=== PATIENT | female | born 1935 | race Caucasian/White ===

== ENCOUNTER 2016-10-04 02:51 | Observation (INO) | payer MEDICAID, MEDICARE ==
[2016-10-04 03:17] LABS: Hematocrit 45 % (35-47); Hemoglobin 14.6 g/dl (12.0-16.0); Mean Corpuscular HGB Conc 32 g/dl (31-36); Mean Corpuscular Hemoglobin 30 pg (27-31); Mean Corpuscular Volume 91 fL (80-97); Mean Platelet Volume 9 um3 (7.4-10.4); Red Blood Count 4.92 10^6/ul (4.0-5.4); Red Cell Distribution Width 15 % (10.5-15); White Blood Count 11.9 10^3/ul (3.5-10.8)
[2016-10-04 03:32] LABS: Albumin 3.6 g/dL (3.2-5.2); BUN/Creatinine Ratio 24.4 (8-20); Calcium 8.7 mg/dL (8.6-10.3); EGFR African American 77.7 (>60); EGFR Non-African American 60.4 (>60); Globulin 4.1 g/dL (2-4); Total Bilirubin 0.3 mg/dL (0.2-1.0); Total Protein 7.7 g/dL (6.4-8.9)
[2016-10-04 03:36] LABS: Troponin I 0.01 ng/mL (<0.04)
[2016-10-04] MEDS ORDERED: Albuterol 2.5 MG/3 ML NEB.SOL* (0.083%) INH PRN (07:52)
--- NOTE | 2016-10-04 08:01 | RAD ---
HISTORY: Chest pain COMPARISONS: March 17, 2011 VIEWS:1: Single frontal portable view of the chest at 3:15 AM FINDINGS: LINES AND TUBES: A left-sided ICD pacemaker is noted CARDIOMEDIASTINAL SILHOUETTE: The cardiomediastinal silhouette is normal for portable technique. PLEURA: The costophrenic angles are sharp. No pleural abnormalities are noted. LUNG PARENCHYMA: The lungs are clear. ABDOMEN: The upper abdomen is clear. There is no subphrenic gas. BONES AND SOFT TISSUES: No bone or soft tissue abnormalities are noted. IMPRESSION: NO ACTIVE CARDIOPULMONARY DISEASE.
[2016-10-04] MEDS: Lisinopril TAB* 10 MG PO SCH ×2 (11:29→21:45)
[2016-10-04] MEDS: Enoxaparin(*) 40 MG/0.4 ML SYR SUBCUT SCH (11:29)
[2016-10-04] MEDS: Metoprolol Succinate XL TAB* 50 MG PO SCH ×2 (11:30→21:46)
[2016-10-04] MEDS: Furosemide TAB* 20 MG PO SCH (11:31)
--- NOTE | 2016-10-04 13:22 | HP ---
CC: Dr. Henriquez; Dr. Manning HISTORY AND PHYSICAL: DATE OF ADMISSION: 10/04/16 PRIMARY CARE PHYSICIAN: Dr. Henriquez CHIEF COMPLAINT: Left arm discomfort. HISTORY OF PRESENT ILLNESS: Ms. Pelayo is a 81-year-old female with a past medical history of hypertension, nonischemic cardiomyopathy, and likely underlying COPD, who presents to the hospital with left arm discomfort. The patient states her symptoms were present for the past 2 to 3 weeks, where she reports a slight ache in the left arm from the shoulder to the elbow that feels like a "toothache." The patient states this has been mostly present at night. She does not really notice it during the day. She feels like over the past few nights, it seems to have possibly worsened and then last night when she went to bed, it was bothersome enough to the point where she could not get to sleep. She continued to toss and turn in bed and could not get comfortable and the arm pain persisted. She denies any chest pain, has chronic shortness of breath, she states, but no change in this recently. No trauma to the arm. She has no associated nausea, vomiting, diaphoresis, or abdominal pain. She states that this is exactly how her symptoms presented 6 years ago when she was diagnosed with what sounds like a nonischemic cardiomyopathy. She states she was referred to Dr. Manning at the time and had a catheterization that was cleaned; however, she had an ICD placed at that time and it sounds like she was diagnosed with a nonischemic cardiomyopathy. Echo at that time showed a severe LV dysfunction with an EF of 20% to 25%. Since then, her last recent echo from March had showed normalization of her EF, which was 55% to 60% in March 2016. The patient was concerned about this and decided to take her blood pressure at home. She states it was elevated at 177/105. She took 81 mg of aspirin x2 and she took an extra dose of her lisinopril, but she felt that this did not help her blood pressure and she began to worry and called 911. En route to the hospital, she got an additional 162 mg of aspirin and a nitro, and she states that prior to arriving to the hospital, her pain resolved. The patient also notes that she has had some left knee pain recently with some swelling in the left lower extremity that began after she hurt her knee while cleaning her commode. PAST MEDICAL HISTORY: 1. Hypertension. 2. Nonischemic cardiomyopathy, status post ICD. PAST SURGICAL HISTORY: 1. ICD placement. 2. Laparotomy with colostomy and reversal for bowel obstruction. 3. Tubal ligation. HOME MEDICATIONS: 1. Aspirin 81 mg by mouth daily. 2. Toprol-XL 50 mg by mouth 3 times daily. 3. Lasix 10 mg by mouth every other day. 4. Lisinopril 30 mg by mouth 3 times daily. 5. Albuterol one puff inhaled every 4 hours as needed for shortness of breath or wheezing. ALLERGIES: The patient reports adverse reaction to COREG, allergy to NICKEL. FAMILY HISTORY: Significant for her father with bone cancer and a bother with cancer. SOCIAL HISTORY: The patient quit smoking 8 years ago after a [id number] history. Denies any alcohol or illicit drug use. REVIEW OF SYSTEMS: A 12-point review of systems is negative except for that as noted in the HPI. PHYSICAL EXAMINATION GENERAL: The patient is a pleasant elderly female, lying in bed in no apparent distress. VITAL SIGNS: On admission: Temperature 97.6, heart rate of 71, respiratory rate of 18, O2 saturation 95% on room air on 2 L, blood pressure 144/64. HEENT: Head normocephalic and atraumatic. Eyes: Pupils are equal, round, and reactive to light and accommodation. Anicteric sclerae. ENT: Moist mucous membranes. No cervical adenopathy. Clear posterior oropharynx. LUNGS: Clear to auscultation bilaterally. No rales or rhonchi. Some mild end - expiratory wheezes noted throughout. CARDIOVASCULAR: Regular rate and rhythm. S1 and S2 present. No murmurs, gallops, or rubs. ABDOMEN: Soft, nontender, and nondistended. Bowel sounds positive. EXTREMITIES: May be some slight asymmetry with the left larger than the right. No pitting edema. NEUROLOGIC: The patient is alert and oriented x3. No focal neurological deficits. SKIN: Warm, dry, and well perfused. LABORATORY DATA: White blood cell count of 11.9, hemoglobin of 14, hematocrit of 45, and platelets of 208. Sodium of 138, potassium 4.0, chloride of 106, carbon dioxide of 28, BUN of 22, creatinine of 0.9, glucose of 103, lactic acid of 1.0, troponin negative x2. EKG personally reviewed shows paced rhythm. Chest x-ray personally reviewed shows no acute disease. ASSESSMENT AND PLAN: Left arm pain, which represents similar symptoms to the patient's previous diagnosis of cardiomyopathy in a 81-year-old female with past medical history of hypertension, likely underlying chronic obstructive pulmonary disease and nonischemic cardiomyopathy. 1. Left arm pain. Pain seems to have resolved right now, possibly due to nitro. The patient did have significant hypertension, which may have been driving her symptoms. She has had 2 negative troponins. EKG shows a paced rhythm. We will continue to monitor the patient on telemetry for now. Check an additional troponin. I have ordered an echocardiogram to be done to evaluate if there has been any change in her heart in the last 6 months. 2. Hypertension. The patient's BP is fairly well controlled now. Continue home medications. We will give her Lasix daily instead of every other day as it was at home. 3. Mild left lower extremity swelling, probably just due to OA and recent trauma from cleaning. We will check a D-dimer. If this is elevated, can proceed with a Doppler. 4. Likely underlying chronic obstructive pulmonary disease. It sounds like the patient has not been formally diagnosed, but she was prescribed albuterol recently. We will continue albuterol in the hospital. 5. DVT prophylaxis. Lovenox subcu. 6. Code status. The patient is a full code. TIME SPENT: Total time spent on this admission was 40 minutes, with over half the time spent [id number] with the patient in counseling and coordinating care. [id number]/[facility] #: [id number] DAVID
--- NOTE | 2016-10-04 20:37 | ED ---
Roselia Lopez Alok, scribed for Isidro Glasgow MD on 10/04/16 at 0409 . Palpitations / Dysrhythmia - HPI Summary HPI Summary: 81F presents to the ED BIBA for EKG abnormality. Pt reportedly woke up this morning feeling left arm pain before seeing her doctor where she was sent here for possible STEMI following EKG. Pt took 162 mg aspirin prior to EMS arrival and was given another 162 mg by EMS as well as 1 tab nitro and 4L O2. Pt notes SOB on exertion same as baseline. Pt also notes left lower extremity edema for the past 2 weeks. Pt currently denies pain and states that left arm pain has subsided since NTG. Pt denies N/V or diaphoresis. Pt denies CP or tightness. PMHx includes HTN and pacemaker. Pt is a former smoker 8 years ago and denies ETOH. Pt ambulates with a cane. PCP Dr. Henriquez. - History of Current Complaint Chief Complaint: EDChestPainROMI Time Seen by Provider: 10/04/16 03:02 Hx Obtained From: Patient Onset/Duration: Resolved Timing: Constant Severity Initially: Moderate Severity Currently: Mild Aggravating: Exertion - SOB Alleviating: Medication - NTG - Allergy/Home Medications Allergies/Adverse Reactions: Allergies Allergy/AdvReac Type Severity Reaction Status Date / Time Nickel Allergy Rash And Verified 10/04/16 03:02 Itching Home Medications: Home Medications Aspirin [Aspirin Adult Low Dose 81 MG] 81 mg PO DAILY 10/04/16 [History Confirmed 10/04/16] Furosemide TAB* [Lasix TAB*] 10 mg PO DAILY 10/04/16 [History Confirmed 10/04/16 ] Lisinopril [Lisinopril 30 MG-] 30 mg PO BID 10/04/16 [History Confirmed 10/04/16 ] Metoprolol Succinate [Toprol Xl] 50 mg PO BID 10/04/16 [History Confirmed ] PMH/Surg Hx/FS Hx/Imm Hx Cardiovascular History: Reports: Hx Hypertension, Hx Pacemaker/ICD - Surgical History Surgery Procedure, Year, and Place: Colon surgery 2011. Colostomy reversal Infectious Disease History: No Infectious Disease History: Denies: History Other Infectious Disease, Traveled Outside the [place] in Last 30 Days - Family History Known Family History: Negative: Cardiac Disease, Hypertension, Diabetes - Social History Occupation: Retired Alcohol Use: None Hx Substance Use: No Substance Use Type: Reports: None Hx Tobacco Use: Yes Smoking Status (MU): Former Smoker Amount Used/How Often: 60 year hx Have You Smoked in the Last Year: No Review of Systems Negative: Fever, Chills Negative: Erythema Negative: Sore Throat Negative: Chest Pain Positive: Shortness Of Breath. Negative: Cough Negative: Abdominal Pain, Vomiting, Nausea Negative: dysuria, hematuria Positive: Edema, Other - left arm pain. Negative: Myalgia Negative: Rash Neurological: Other - Negative: Dizziness All Other Systems Reviewed And Are Negative: Yes Physical Exam - Summary Physical Exam Summary: Constitutional: Well-developed, Well-nourished, Alert. (-) Distressed Skin: Warm, Dry HENT: Normocephalic; Atraumatic Eyes: Conjunctiva normal Neck: Musculoskeletal ROM normal neck. (-) JVD, (-) Stridor, (-) Tracheal deviation Cardio: Rhythm regular, rate normal, Heart sounds normal; Intact distal pulses; The pedal pulses are 2+ and symmetric. Radial pulses are 2+ and symmetric. (-) Murmur Pulmonary/Chest wall: Effort normal. (-) Respiratory distress, (-) Wheezes, (-) Rales Abd: Soft, (-) Tenderness, (-) Distension, (-) Guarding, (-) Rebound Musculoskeletal: Lower left extremity Edema Lymph: (-) Cervical adenopathy Neuro: Alert, Oriented x3 Psych: Mood and affect Normal Triage Information Reviewed: Yes Vital Signs On Initial Exam: Initial Vitals Temp Pulse Resp BP Pulse Ox 97.6 F 71 18 144/64 97 10/04/16 03:06 10/04/16 03:06 10/04/16 03:06 10/04/16 03:06 10/04/16 03:06 Vital Signs Reviewed: Yes Diagnostics - Vital Signs Vital Signs Temp Pulse Resp BP Pulse Ox 10/04/16 03:06 97.6 F 71 18 144/64 97 - Laboratory Lab Results: Lab Results 10/04/16 10/04/16 10/04/16 Range/Units 02:55 02:55 02:55 WBC 11.9 H (3.5-10.8) 10^3/ul RBC 4.92 (4.0-5.4) 10^6/ul Hgb 14.6 (12.0-16.0) g/dl Hct 45 (35-47) % MCV 91 (80-97) fL MCH 30 (27-31) pg MCHC 32 (31-36) g/dl RDW 15 (10.5-15) % Plt Count 208 (150-450) 10^3/ul MPV 9 (7.4-10.4) um3 Neut % (Auto) 55.9 (38-83) % Lymph % (Auto) 26.5 (25-47) % [place] % (Auto) 12.5 H (1-9) % Eos % (Auto) 4.5 (0-6) % Baso % (Auto) 0.6 (0-2) % Absolute Neuts (auto) 6.7 (1.5-7.7) 10^3/ul Absolute Lymphs (auto) 3.2 (1.0-4.8) 10^3/ul Absolute Monos (auto) 1.5 H (0-0.8) 10^3/ul Absolute Eos (auto) 0.5 (0-0.6) 10^3/ul Absolute Basos (auto) 0.1 (0-0.2) 10^3/ul Absolute Nucleated RBC 0.02 10^3/ul Nucleated RBC % 0.1 Sodium 138 (133-145) mmol/L Potassium 4.0 (3.5-5.0) mmol/L Chloride 106 (101-111) mmol/L Carbon Dioxide 28 (22-32) mmol/L Anion Gap 4 (2-11) mmol/L BUN 22 (6-24) mg/dL Creatinine 0.90 (0.51-0.95) mg/dL Est GFR ( Amer) 77.7 (>60) Est GFR (Non-Af Amer) 60.4 (>60) BUN/Creatinine Ratio 24.4 H (8-20) Glucose 103 H (70-100) mg/dL Lactic Acid 1.0 (0.5-2.0) mmol/L Calcium 8.7 (8.6-10.3) mg/dL Total Bilirubin 0.30 (0.2-1.0) mg/dL AST 15 (13-39) U/L ALT 13 (7-52) U/L Alkaline Phosphatase 87 (34-104) U/L Troponin I 0.01 (<0.04) ng/mL Total Protein 7.7 (6.4-8.9) g/dL Albumin 3.6 (3.2-5.2) g/dL Globulin 4.1 H (2-4) g/dL Albumin/Globulin Ratio 0.9 L (1-3) Result Diagrams: 10/04/16 02:55 10/04/16 02:55 Lab Statement: Any lab studies that have been ordered have been reviewed, and results considered in the medical decision making process. - Radiology CXR Xray Interpretation: No Acute Changes Radiology Interpretation Completed By: ED Physician - Dr. Glasgow - EKG 0251 Cardiac Rate: Other Rate - 70 bpm EKG Interpretation: No STEMI Course/Dx - Diagnoses Provider Diagnoses: Left arm pain - Physician Notifications Discussed Care Of Patient With: Dr. Dixon (Hospitalist) @ [id number] - Will admit pt Discharge - Discharge Plan Condition: Stable Disposition: ADMITTED TO [facility] The documentation as recorded by the Roselia moragn Alok accurately reflects the service I personally performed and the decisions made by Pee guillermo Jerry, MD.
--- NOTE | 2016-10-05 08:27 | PN ---
Subjective Date of Service: 10/05/16 Interval History: Patient seen this morning. No complaints. No recurrence of arm discomfort, no chest pain, SOB. Slept well. Family History: Unchanged from Admission Social History: Unchanged from Admission Past Medical History: Unchanged from Admission Objective Active Medications: Albuterol (Ventolin 2.5 Mg/3 Ml Neb.Sirena*) 2.5 mg INH [id number] AWAKE PRN Aspirin (Aspirin Ec Low Dose*) 81 mg PO DAILY MARTHA Enoxaparin Sodium (Lovenox(*)) 40 mg SUBCUT Q24H MARTHA Furosemide (Lasix Tab*) 10 mg PO DAILY MARTHA Lisinopril (Prinivil Tab*) 30 mg PO BID MARTHA Metoprolol Succinate (Toprol Xl Tab*) 50 mg PO BID [facility] Vital Signs 10/04/16 10/04/16 10/04/16 08:31 08:42 09:00 Temperature Pulse Rate 68 71 Respiratory 21 Rate Blood Pressure 146/62 144/63 (mmHg) O2 Sat by Pulse 95 92 Oximetry 10/04/16 10/04/16 10/04/16 09:14 09:51 10:53 Temperature 98.5 F 97.6 F 97.6 F Pulse Rate 70 70 70 Respiratory 21 18 18 Rate Blood Pressure 144/63 147/64 147/64 (mmHg) O2 Sat by Pulse 94 94 Oximetry 10/04/16 10/04/16 10/04/16 12:16 15:42 20:04 Temperature 97.6 F 98.1 F 98.3 F Pulse Rate 70 69 69 Respiratory 16 18 18 Rate Blood Pressure 148/79 133/63 135/61 (mmHg) O2 Sat by Pulse 94 92 93 Oximetry 10/04/16 10/05/16 10/05/16 23:29 03:24 03:31 Temperature 98.0 F 98.0 F Pulse Rate 70 72 Respiratory 16 20 Rate Blood Pressure 146/64 163/74 135/72 (mmHg) O2 Sat by Pulse 94 93 Oximetry Oxygen Devices in Use Now: None Appearance: Elderly, F, sitting in chair in NAD Eyes: No Scleral Icterus Ears/Nose/Mouth/Throat: Mucous Membranes Moist Neck: NL Appearance and Movements; NL JVP Respiratory: Symmetrical Chest Expansion and Respiratory Effort, Clear to Auscultation Cardiovascular: NL Sounds; No Murmurs; No JVD, RRR Abdominal: NL Sounds; No Tenderness; No Distention Lymphatic: No Cervical Adenopathy Extremities: - - Minimal LE edema Skin: No Rash or Ulcers Neurological: Alert and Oriented x 3 Result Diagrams: 10/04/16 02:55 10/04/16 02:55 Assess/Plan/Problems-Billing Assessment: L arm pain, possible anginal equivalent, in a 81 yo F with hx of NICM, HTN and likely COPD - Patient Problems (1) Arm pain Current Visit: Yes Comment: Concern as this was presenting symptoms when patient was found to have EF of 20%. No further symptoms here in the hospital. Troponins remained negative, no events on tele. Echo pending. Patient prefers to wait on stress test scheduling until she speaks with Dr. Manning to see if he feels one is needed. (2) HTN (hypertension) Current Visit: Yes Comment: BPs well controlled, continue home regimen. (3) COPD (chronic obstructive pulmonary disease) Current Visit: Yes Comment: Continue prn albuterol (4) Leg edema, left Current Visit: Yes Comment: Minimal. D-dimer not significantly elevated. Likely due to trauma. (5) DVT prophylaxis Current Visit: Yes Comment: Lovenox SQ
[2016-10-05] MEDS ORDERED: Aspirin EC Low Dose* 81 MG TAB.EC PO SCH (09:00)
[2016-10-05] MEDS: Metoprolol Succinate XL TAB* 50 MG PO SCH (09:07)
[2016-10-05] MEDS: Furosemide TAB* 20 MG PO SCH ×2 (09:07→09:44)
[2016-10-05] MEDS: Lisinopril TAB* 10 MG PO SCH (09:08)
[2016-10-05] MEDS: Enoxaparin(*) 40 MG/0.4 ML SYR SUBCUT SCH ×2 (09:08→09:44)
[2016-10-05 11:25] VITALS: BP 130/68
--- NOTE | 2016-10-05 12:41 | ECHO ---
Patient: SHAYNA WINTER [facility] Rec#: [id number] : 1935 Date: 10/05/2016 Age: 81y Height: 152.4 cm / 60.0 in Weight: 79.4 kg / 175.0 lbs Sex: F BSA: 1.8 Room#: [facility] Admit Date#: 10/04/2016 Type: Inpatient Referring: CACHORRO MEJIA MD Reading: Shon Andrews MD Accreditation Manager: Luciana Vann RN RDCS CC: Faizan Henriquez MD Transthoracic Echocardiogram Indication: Left arm pain, cardiomyopathy BP: 135/72 HR: 70 Rhythm: Paced Findings History: HTN, non-ischemic cardiomyopathy, AICD, former smoker, obesity Technical Comments: The study is technically limited due to poor parasternal windows. The study is technically limited due to patient body habitus. The study is technically limited due to the patient's smoking history. Completed at 1220. Left Ventricle: The left ventricular chamber size is normal. Mild concentric left ventricular hypertrophy is observed. Global left ventricular wall motion and contractility are within normal limits. There is normal left ventricular systolic function. The estimated ejection fraction is 55-60%. There is abnormal ventricular septal wall motion consistent with right ventricular pacemaker. The left ventricular diastolic filling pattern is consistent with pseudonormalization. Left Atrium: The left atrial chamber size is normal. Right Ventricle: The right ventricular chamber size and systolic function are within normal limits. A pacemaker wire is visualized in the right ventricle. Right Atrium: The right atrial cavity size is normal. A pacemaker wire is visualized in the right atrium. Aortic Valve: The aortic valve structure is not well visualized. There is a trace of aortic regurgitation. There is no evidence of aortic stenosis. Mitral Valve: The mitral valve leaflets are mildly thickened. There is mild mitral regurgitation. There is no evidence of mitral stenosis. Tricuspid Valve: The tricuspid valve leaflets are normal. There is mild to moderate tricuspid regurgitation. The tricuspid regurgitant jet is directed toward the septum. No pulmonary hypertension is noted. Pulmonic Valve: The pulmonic valve structure is not well visualized. Pericardium: There is no significant pericardial effusion. A pericardial fat pad is visualized. Aorta: There is no dilatation of the ascending aorta. There is no dilatation of the aortic arch. There is no dilation of the aortic root. Pulmonary Artery: The main pulmonary artery is not well visualized. Venous: The inferior vena cava appears normal in size. There is a greater than 50% respiratory change in the inferior vena cava dimension. Conclusions The study is technically limited due to poor parasternal windows. Mild concentric left ventricular hypertrophy is observed. Global left ventricular wall motion and contractility are within normal limits. The estimated ejection fraction is 55-60%. There is abnormal ventricular septal wall motion consistent with right ventricular pacemaker. The right ventricular chamber size and systolic function are within normal limits. There is a trace of aortic regurgitation. There is mild mitral regurgitation. There is mild to moderate tricuspid regurgitation. No pulmonary hypertension is noted. There is no significant pericardial effusion. Measurements Name Value Normal Range RVDdMajor (2D) 2.9 cm (2.2 - 4.4) RAd ISD 4CH 4.1 cm (3.4 - 4.9) RA (A4C)W 3.1 cm (2.9 - 4.6) IVSd (2D) 1.2 cm (0.6 - 1) LVPWd (2D) 1.2 cm (0.6 - 1) LVIDd (2D) 3.5 cm (3.6 - 5.4) LVIDs (2D) 2.6 cm - LV FS (2D) 27 % (25 - 45) Aortic Annulus 1.8 cm (1.4 - 2.6) Ao root diameter (2D) 2.9 cm (2.1 - 3.5) Ascending Ao 3.2 cm (2.1 - 3.4) Aortic arch 2.3 cm (1.8 - 3.4) LA dimension (AP) 2D 3.3 cm (2.3 - 3.8) LAd ISD 4CH 3.9 cm (2.9 - 5.3) LA ISD 4CH W 3.9 cm (2.5 - 4.5) Name Value Normal Range LA ESV SP 4CH (A/L) 20 ml - LA ESV SP 2CH (A/L) 30 ml - LA ESV BP (A/L) 25 ml - LA ESV BP (A/L) index 14.3 ml/m2 - LA ESV SP 4CH (MOD) 18 ml - LA ESV SP 2CH (MOD) 29 ml - Name Value Normal Range MV E-wave Vmax 0.98 m/sec - MV deceleration time 207 msec - MV A-wave Vmax 1 m/sec - MV E:A ratio 0.9 ratio - LV septal e' Vmax 0.06 m/sec - LV lateral e' Vmax 0.07 m/sec - LV E:e' septal ratio 16.3 ratio - LV E:e' lateral ratio 14 ratio - Name Value Normal Range AV Vmax 1.8 m/sec - AV VTI 39.1 cm - AV peak gradient 12 mmHg - AV mean gradient 7 mmHg - LVOT Vmax 1 m/sec - LVOT VTI 19.9 cm - LVOT peak gradient 3.8 mmHg - LVOT mean gradient 1.8 mmHg - CHRISTINE Vmax 0.52 m/sec - Name Value Normal Range TR Vmax 2.7 m/sec - TR peak gradient 29 mmHg - RAP 3 mmHg - RVSP 32 mmHg - IVC diameter 2 cm - Name Value Normal Range PV Vmax 0.74 m/sec -
--- NOTE | 2016-10-05 20:09 | DS ---
DISCHARGE SUMMARY: DATE OF ADMISSION: 10/04/16 DATE OF DISCHARGE: 10/05/16 PRIMARY CARE PHYSICIAN: Dr. Henriquez. PRINCIPAL DISCHARGE DIAGNOSIS: Left arm pain. SECONDARY DIAGNOSES: 1. Hypertension. 2. Non-ischemic cardiomyopathy, likely underlying chronic obstructive pulmonary disease. DISCHARGE MEDICATION REGIMEN: 1. Aspirin 81 mg by mouth daily. 2. Metoprolol succinate 50 mg by mouth 2 times daily. 3. Lisinopril 30 mg by mouth 2 times daily. 4. Albuterol 1 puff inhaled every 4 hours as needed for shortness of breath or wheezing. 5. Lasix 10 mg by mouth every other day. STUDIES DURING HOSPITALIZATION: Chest x-ray, impression: No active cardiopulmonary disease. Echocardiogram: Study is technically limited due to poor parasternal windows, mild concentric LVH is observed, global left ventricular wall motion and contractility within normal limits. The ejection fraction is 55% to 60%. There is an abnormal ventricular septal wall motion consistent with right ventricular pacemaker. The right ventricular chamber size and systolic function are within normal limits. There is trace aortic regurgitation and mild mitral regurgitation , [id number] tricuspid regurgitation. No pulmonary hypertension. No significant pericardial effusion. HISTORY OF PRESENT ILLNESS AND HOSPITAL SUMMARY: Please see my full history and physical for full details. Briefly, Ms. Pelayo is a 81-year-old female with past medical history as above, who presented to the hospital with left arm discomfort. The patient states that this was exactly how her symptoms presented 6 years ago, when she was diagnosed with a non-ischemic cardiomyopathy and found to have an EF 20% to 25%. Due to the similarities for her previous symptoms and significantly elevated blood pressure at home, decision was made to monitor the patient. Her troponins were trended, which remained negative and she was monitored on telemetry with no arrhythmias. She underwent a repeat echocardiogram, which is largely unchanged from March 2016. The possibility of a stress test was brought up to the patient; however, she said that she would prefer to discuss this further with Dr. Manning, her outpatient visiting professor. The patient will be discharged home with no medication changes and will follow up with her PCP and Dr. Manning as an outpatient. TIME SPENT: Total time spent on this discharge, 40 minutes. This is a summary of the hospitalization. Please see the full medical record for further details. CC: Dr. Henriqeuz* [id number]/[facility] #: [id number]
== END 2016-10-05 13:37 | disposition home or self-care (01) ==
LOC: ED 02:51 → MEDTELE 08:06
PROVIDERS: ADMIT Hospitalist; ATTEND Hospitalist
DX: M79.602 Pain in left arm (principal); I10 Essential (primary) hypertension; R06.02 Shortness of breath; I42.9 Cardiomyopathy, unspecified; I51.7 Cardiomegaly; I45.10 Unspecified right bundle-branch block; Z95.810 Presence of automatic (implantable) cardiac defibrillator; Z79.82 Long term (current) use of aspirin
CPT/HCPCS: 36415; 71010; 80053; 83605; 84484; 85025; 85379; 93005; 93306; 96372; 99284; A9270-GY; G0378; J1650